=== PATIENT | male | born 1995 | race Caucasian/White ===

== ENCOUNTER 2020-10-09 22:48 | Emergency (ER) | payer SELFPAY ==
--- NOTE | 2020-10-09 22:54 | ED.FALL ---
HPI - Fall General Chief Complaint: Fall Stated Complaint: fell, hard to breath Time Seen by Provider: 10/09/20 22:54 Source: patient Mode of arrival: ambulatory Limitations: no limitations History of Present Illness HPI Narrative: 25-year-old man comes in today complaining of left-sided rib pain, abrasions on left lateral leg, and contusions on his face after falling off a ladder at home 30 minutes before arrival. Patient states that he was 10-15 ft up on a ladder when he lost balance and fell. He denies any head injury but states that struck the side of his face on the ladder. He did not loss consciousness nor has he had any hemoptysis, shortness of breath, vomiting, abdominal pain, or hematuria. Patient states he is only here to appease his significant other; he is not concerned about his injuries. MD complaint: fall Onset (ago): minute(s) (30) Fall from: from height (distance) (10+ ft) Fall witnessed: yes, by family Place fall occurred: home Loss of consciousness: none Prolonged down time: no Symptoms prior to fall: none Location of injury: head and chest Location of injury - extremities: Left: lower leg Severity: moderate Quality: sharp Associated symptoms (after fall): chest pain Review of Systems Review of Systems: All systems reviewed & are unremarkable except as noted in HPI and below Constitutional: Constitutional: Denies chills and Denies fever(s) Eyes: Eyes: Denies change in vision and Denies photophobia ENT: Denies dysphagia, Denies nasal congestion and Denies sore throat Cardiovascular: Cardiovascular: Reports chest pain and Denies radiating jaw, neck or arm pain Respiratory: Respiratory: Denies cough, Denies dyspnea and Denies wheezing Gastrointestinal: Gastrointestinal: Denies abdominal pain, Denies nausea and Denies vomiting Genitourinary: Genitourinary: Denies hematuria Musculoskeletal: Musculoskeletal: Denies back pain, Denies arthralgias and Denies joint swelling Integumentary/Breasts: Skin/Breast: Denies pruritus, Denies erythema and Denies rash Comments: leg abrasions Neurologic: Denies vertigo, Denies dizziness and Denies syncope Hematologic/Lymphatic: Hematologic/Lymphatic: Denies easy bleeding and Denies easy bruising Allergic/Immunologic: Allergic/Immunologic: Denies lip swelling and Denies throat swelling PMFSH Social History Social History Smoking status: Never smoker Alcohol intake: never Substance use: current Substance use type: opiates Other substance usage details: Used fentanyl in the lasr 24 hours Living arrangements: with family Gender identity (if verbalized by the patient): Male Exam Const: General: healthy appearing Orientation/consciousness: patient oriented x3 Limitations: no limitations Other: Mild acute distress. Appears anxious HENMT: Ears: external ears normal, TM's normal bilaterally and EAC's normal General nose exam: Normal nares present Mouth: Yes moist mucous membranes Throat: posterior oropharynx normal Other: Mildly tender parallel linear contusions on the left side of the face from the chin to the samaritan. No bleeding. Eyes: Conjunctivae: conjunctivae normal Pupils: Equal, round and reactive pupils present EOM: EOMs intact bilaterally Neck: Neck: normal visual inspection and no lymphadenopathy Other: Nontender, normal range of motion. Chest: Chest palpation & inspection: tenderness Other: Tenderness to palpation of the left lower anterolateral portion of the chest where there is a linear abrasion. no bruising, swelling, crepitus or palpably abnormal contours. No tenderness to palpation of the sternum or the right chest. Resp: Effort & Inspection: normal respiratory effort and not labored Auscultation: clear to auscultation bilaterally, no rales, no rhonchi and no wheezes Cardio: Rate: regular rate Rhythm: regular rhythm Heart sounds: no murmurs GI: Inspection: non
[2020-10-09 22:56] VITALS: BP 148/90; PULSE 78; RESP 18; TEMP 36.6; O2SAT 98
== END 2020-10-09 23:06 | disposition left against medical advice (07) ==
LOC: CHSED 22:54
PROVIDERS: Emergency Provider Emergency Medicine
DX: S20.219A Contusion of unspecified front wall of thorax, initial encounter (principal); S00.83XA Contusion of other part of head, initial encounter; S80.812A Abrasion, left lower leg, initial encounter; W11.XXXA Fall on and from ladder, initial encounter
CPT/HCPCS: 99282

== ENCOUNTER 2020-10-17 11:58 | Emergency (ER) | payer BC, SELFPAY ==
[2020-10-17 12:23] VITALS: RESP 20; TEMP 36.8; O2SAT 98
--- NOTE | 2020-10-17 12:31 | ED.LOWEXIN ---
HPI - Extremity Injury (Lower) General Chief Complaint: Extremity Injury, Lower Stated Complaint: foot pain Time Seen by Provider: 10/17/20 12:32 Source: patient Mode of arrival: ambulatory Limitations: no limitations History of Present Illness HPI Narrative: Patient states he is homeless and comes in because of increasing pain in right foot over the past few days. Patient states he has had increasing pain in his right foot. Pain has been sharp, moderately severe, and ongoing, worse with walking with his boots on. It appears his boots have been irritating his foot as he walks. He appears to have an ulcer, from where he has a seam in his boot which has been aggravating his foot. Type of Injury: other (ulcer on foot ) Place: street/outdoors Severity: moderate Severity scale (1-10): 8 Relieving factors: nothing Exacerbating factors: nothing Related Data Allergies Allergy/AdvReac Type Severity Reaction Status Date / Time No Known Allergies Allergy Verified 10/17/20 12:55 Review of Systems Constitutional: Constitutional: Reports no additional constitutional complaints Eyes: Eyes: Reports no additional eye complaints ENT: Reports system reviewed and no additional complaints, except as documented Cardiovascular: Cardiovascular: Reports no additional cardiovascular complaints Respiratory: Respiratory: Reports no additional respiratory complaints Gastrointestinal: Gastrointestinal: Reports no additional gastrointestinal complaints Genitourinary: Genitourinary: Reports no additional male genitourinary complaints Musculoskeletal: Musculoskeletal: Reports no additional musculoskeletal complaints Integumentary/Breasts: Skin/Breast: Reports system reviewed and no additional complaints, except as docu Neurologic: Reports system reviewed and no additional complaints, except as documented Psychiatric: Psychiatric: Reports no additional psychiatric complaints Endocrine: Endocrine: Reports no additional endocrine complaints Hematologic/Lymphatic: Hematologic/Lymphatic: Reports no additional hematologic/lymphatic complaints Allergic/Immunologic: Allergic/Immunologic: Reports no additional allergic/immunologic complaints [facility] Past Medical History Medical History (Updated 10/18/20 @ 01:41 by Carlos Alberto Maya MD) Opiate abuse, continuous Surgical History Surgical History (Updated 10/18/20 @ 01:41 by Carlos Alberto Maya MD) No significant past surgical history Family History Family History (Updated 10/18/20 @ 01:41 by Carlos Alberto Maya MD) Mother No significant family history Social History Social History Smoking status: Never smoker Alcohol intake: never Substance use: current Substance use type: opiates Other substance usage details: Used fentanyl in the lasr 24 hours Gender identity (if verbalized by the patient): Male Exam Const: General: no acute distress HENMT: Head: normal to inspection Ears: external ears normal General nose exam: Normal external nose present Mouth: Yes Normal oral and palatal mucosa present Throat: posterior oropharynx normal Eyes: Conjunctivae: conjunctivae normal Neck: Neck: normal visual inspection Chest: Chest palpation & inspection: normal inspection of the chest Resp: Effort & Inspection: normal respiratory effort Auscultation: clear to auscultation bilaterally Cardio: Rate: regular rate Rhythm: regular rhythm GI: GI Palp: Yes Soft to palpation (nontender) Back/Spine/Pelvis: Back: no CVA tenderness Skin: General skin exam: normal color Neuro: General: patient oriented x3 and moves all extremities Extrem: General: normal to inspection Psych: Appearance: grossly normal Mental Status: mental status grossly normal Thought content: Yes Normal thought content present Course Course Emergency Course: He refused admission, and was given keflex 1000mg prior to signing out AMA. He was sent home with a script
[2020-10-17 12:50] VITALS: BP 114/68; PULSE 91; RESP 20; O2SAT 98
[2020-10-17] MEDS: CEPHALEXIN 500 MG CAPSULE 1000 MG PO (12:50)
== END 2020-10-17 13:03 | disposition left against medical advice (07) ==
PROVIDERS: Emergency Provider Emergency Medicine
DX: L03.90 Cellulitis, unspecified (principal)
CPT/HCPCS: 99283; A9270

== ENCOUNTER 2020-10-18 01:35 | Inpatient (IN) | payer BC, SELFPAY ==
[2020-10-18 01:35] VITALS: BP 143/78; PULSE 92; RESP 20; TEMP 36.6; O2SAT 97
[2020-10-18 02:34] LABS: Basophils Absolute Auto 0.05 K/mm3 (0.00-0.10); Basophils Percent Auto 0.5 % (0.0-1.0); Eosinophils Absolute Auto 0.28 K/mm3 (0.02-0.50); Eosinophils Percent Auto 2.9 % (1.0-6.0); Hematocrit 39.3 % (40.0-54.0); Hemoglobin 13.3 g/dL (14.0-18.0); Immature Granulocyte Absolute 0.03 K/mm3 (0.00-0.00); Immature Granulocyte Percent A 0.3 % (0.0-0.0); Lymphocytes Absolute Auto 3.22 K/mm3 (1.10-4.50); Lymphocytes Percent Auto 33.3 % (18.0-42.0); Mean Corpuscular HGB Conc 33.8 g/dL (32.0-36.0); Mean Corpuscular Hemoglobin 29.2 pg (27.0-31.0); Mean Corpuscular Volume 86.4 fL (78.0-102.0); Mean Platelet Volume 9.5 fl (8.7-11.0); Monocytes Absolute Auto 0.92 K/mm3 (0.10-0.90); Monocytes Percent Auto 9.5 % (2.0-11.0); Neutrophils Absolute Auto 5.2 K/mm3 (1.7-7.2); Neutrophils Percent Auto 53.5 % (50.0-70.0); Platelet Count Result 313 K/mm3 (150-420); Red Blood Count 4.55 M/mm3 (4.70-6.10); Red Cell Distribution Width 12.7 % (11.6-14.4); White Blood Count 9.7 K/mm3 (4.8-10.8)
[2020-10-18 02:51] LABS: Alanine Aminotransferase 33 U/L (16-63); Albumin Level 3.9 g/dL (3.4-5.0); Alkaline Phosphatase 103 U/L (46-116); Anion Gap 6 mmol/L (8-16); Aspartate Amino Transferase 29 U/L (15-37); Bilirubin,Total 0.5 mg/dL (0.00-1.00); Blood Urea Nitrogen 23 mg/dL (7-18); Calcium 9.4 mg/dL (8.5-10.1); Carbon Dioxide 31 mmol/L (21-32); Chloride 102 mmol/L (98-108); Estimated Glomerular Filt Rate > 60; Glucose 92 mg/dL (70-99); Osmolality Calculated 291 mOsm/kg (285-295); Sodium 139 mmol/L (136-145); Total Protein 7.4 g/dL (6.4-8.2)
--- NOTE | 2020-10-18 02:53 | ED.LOWEXIN ---
HPI - Extremity Injury (Lower) General Chief Complaint: Extremity Injury, Lower Stated Complaint: FOOT PAIN Time Seen by Provider: 10/18/20 02:40 Source: patient Mode of arrival: ambulatory Limitations: no limitations History of Present Illness HPI Narrative: Patient comes back in to be seen again, complaining of his right foot hurting. Pain has been moderately severe, sharp and ongoing. Pain is less if he stays off his foot. It appears a boot he has been wearing has caused an ulcer on his right foot and precipitated the cellulitis. This apparently has developed over a few days. Place: home Severity: moderate Severity scale (1-10): 5 Relieving factors: rest Related Data Allergies Allergy/AdvReac Type Severity Reaction Status Date / Time No Known Allergies Allergy Verified 10/17/20 12:55 Review of Systems Constitutional: Constitutional: Reports no additional constitutional complaints Eyes: Eyes: Reports no additional eye complaints ENT: Reports system reviewed and no additional complaints, except as documented Cardiovascular: Cardiovascular: Reports no additional cardiovascular complaints Respiratory: Respiratory: Reports no additional respiratory complaints Gastrointestinal: Gastrointestinal: Reports no additional gastrointestinal complaints Genitourinary: Genitourinary: Reports no additional male genitourinary complaints Musculoskeletal: Musculoskeletal: Reports no additional musculoskeletal complaints Integumentary/Breasts: Skin/Breast: Reports system reviewed and no additional complaints, except as docu Neurologic: Reports system reviewed and no additional complaints, except as documented Psychiatric: Psychiatric: Reports no additional psychiatric complaints Endocrine: Endocrine: Reports no additional endocrine complaints Hematologic/Lymphatic: Hematologic/Lymphatic: Reports no additional hematologic/lymphatic complaints Allergic/Immunologic: Allergic/Immunologic: Reports no additional allergic/immunologic complaints [facility] Past Medical History Medical History (Updated 10/18/20 @ 02:56 by Carlos Alberto Maya MD) Opiate abuse, continuous Surgical History Surgical History (Updated 10/18/20 @ 01:41 by Carlos Alberto Maya MD) No significant past surgical history Family History Family History (Updated 10/18/20 @ 01:41 by Carlos Alberto Maya MD) Mother No significant family history Social History Social History Smoking status: Never smoker Alcohol intake: never Substance use: current Substance use type: opiates Other substance usage details: Used fentanyl in the lasr 24 hours Gender identity (if verbalized by the patient): Male Exam Const: General: healthy appearing and no acute distress Orientation/consciousness: patient oriented x3 HENMT: Head: normal to inspection Face and sinus: normal facial exam Eyes: Conjunctivae: conjunctivae normal Neck: Neck: normal visual inspection Chest: Chest palpation & inspection: normal inspection of the chest Resp: Effort & Inspection: normal respiratory effort Auscultation: clear to auscultation bilaterally Cardio: Rate: regular rate Rhythm: regular rhythm GI: GI Palp: Yes Soft to palpation (nontender) Skin: General skin exam: normal color Neuro: General: patient oriented x3 and moves all extremities Extrem: Other: cellulitis to right foot, and ulcer on proximal foot Psych: Appearance: grossly normal Mental Status: mental status grossly normal Thought content: Yes Normal thought content present Course Course Emergency Course: labs were done, antibiotics were started for cellulitis in right foot MDM - Extremity Injury (Lower) Differential Diagnosis Differential diagnosis: Likely other (cellulitis right foot) Lab Data Result diagrams: 10/18/20 02:20 10/18/20 02:20 Labs: Lab Results 10/18/20 10/18/20 Range/Units 02:20 02:20 WBC 9.7 (4.8-
[2020-10-18 03:14] LABS: Amphetamine Screen Urine Positive (Negative); Barbiturate Screen Urine Negative (Negative); Benzodiazepines Screen Urine Negative (Negative); Cannabinoid Screen Urine Negative (Negative); Cocaine Screen Urine Negative (Negative); Methadone Screen Urine Negative (Negative); Opiate Screen Urine Positive (Negative); Phencyclidine Screen Urine Negative (Negative)
--- NOTE | 2020-10-18 03:18 | PC.NURSE ---
0230 pt showered with hibicleanse soap. clean gown and socks applied.
[2020-10-18 03:26] VITALS: BP 147/84; PULSE 94; RESP 20; TEMP 36.5; O2SAT 97
--- NOTE | 2020-10-18 04:00 | PC.NURSE ---
per dr day, allow floor staff to apply dressing to feet as ordered.
--- NOTE | 2020-10-18 04:02 | PC.NURSE ---
0400 pt to floor per wheelchair with personal belongings with JENNIFER Dubon.
[2020-10-18 04:13] VITALS: BMI 22.3
--- NOTE | 2020-10-18 04:19 | PC.NURSE ---
Patient admitted to floor from ER at 0400. Patient is A/O x4. Wounds present to right and left feet. Wounds were dressing after assessment. Able to ambulate, unsteady gait at times d/t wounds to feet. IV present to left wrist. Patient ate sandwich and drank soda. Monitoring.
[2020-10-18] MEDS: NICOTINE (*PBKC) 21 MG PATCH 1 PATCH TRANSDERM (04:28)
[2020-10-18] MEDS: MUPIROCIN 2% OINT 22 GM TUBE 1 APPLIC TOPICAL (04:28)
[2020-10-18 05:07] VITALS: BP 106/57; PULSE 86; RESP 18; TEMP 36.4; O2SAT 99
--- NOTE | 2020-10-18 05:08 | PC.NURSE ---
Patient admitted with iphone and personal forest law and policy professor, edward. Clothes and boots.
[2020-10-18 08:00] VITALS: BP 111/56; PULSE 80; RESP 18; TEMP 36.4; O2SAT 99
--- NOTE | 2020-10-18 08:40 | PC.NURSE ---
Patient called to nurses station stating that he is going to leave. V Block Saw Operator reported to MONA Urena. Romel spoke with patient. Patient signed AMA paper. Left wrist IV removed, catheter intact.
--- NOTE | 2020-10-18 08:51 | PC.NURSE ---
Line Leader went to check on patient. Patient and all belongings gone. MONA Urena, charge nurse notified
--- NOTE | 2020-10-18 08:55 | PC.NURSE ---
Patient signed out AMA. Left floor around 0845. Ambulated off of floor without notifying anyone.
--- NOTE | 2020-10-18 08:57 | PM.SD2 ---
Same Day Admit/Disch: HPI History of Present Illness Chief complaint: FOOT PAIN <DAVID James - Last Filed: 10/18/20 09:07> Narrative: Fer Culver is a 25 year old male who came to the hospital yesterday 2 times. Both times were for lower extremity issues. He refused to be admitted the first time but was agreeable the second time he come to the ER. I was informed by Nurse Bolaños that the Pt informed her that he was leaving. She stated he was going to leave AMA. Pt would not allow me to perform a physical exam, obtain HPI (above is from ER notes), or any other assessment for his hospitalization. <DAVID James - Last Filed: 10/18/20 09:07> [facility] Past Medical History Medical History: Medical History (Updated 10/18/20 @ 02:56 by Carlos Alberto Maya MD) Opiate abuse, continuous <DAVID James - Last Filed: 10/18/20 09:07> Surgical History Surgical History: Surgical History (Updated 10/18/20 @ 01:41 by Carlos Alberto Maya MD) No significant past surgical history <DAVID James - Last Filed: 10/18/20 09:07> Family History Family History: Family History (Updated 10/18/20 @ 01:41 by Carlos Alberto Maya MD) Mother No significant family history <DAVID James - Last Filed: 10/18/20 09:07> Social History Social History: Social History Smoking packs per day: 1 Smoking cigarettes per day: 20.0 Years smoked: 10 Smoking pack-years: 10.00 Smoking status: Current every day smoker Tobacco type: cigarettes Smokeless tobacco user: chewing tobacco Second hand tobacco smoke exposure: Yes Alcohol intake: never Substance use: current Substance use type: other Other substance usage details: fentanyl Gender identity (if verbalized by the patient): Male Spiritual care concerns: No <DAVID James - Last Filed: 10/18/20 09:07> Same Day Admit/Disch: Med Pre-admit Medications Home Medications: Home Medications Medication Instructions Recorded Confirmed Type cephalexin 500 mg PO Q6H 7 Days #40 cap 10/17/20 10/18/20 Rx <DAVID James - Last Filed: 10/18/20 09:07> Exam Narrative: Exam Narrative: Pt did not allow a Physical Examination <DAVID James - Last Filed: 10/18/20 09:07> DS: Data Data Completed and Pending Labs on day of discharge: Labs from last 24 hours 10/18/20 10/18/20 10/18/20 02:20 02:20 02:01 WBC 9.7 RBC 4.55 L Hgb 13.3 L Hct 39.3 L MCV 86.4 MCH 29.2 MCHC 33.8 RDW 12.7 Plt Count 313 MPV 9.5 Immature Gran % (Auto) 0.3 H Neut % (Auto) 53.5 Lymph % (Auto) 33.3 [place] % (Auto) 9.5 Eos % (Auto) 2.9 Baso % (Auto) 0.5 Lymph # (Auto) 3.22 [place] # (Auto) 0.92 H Eos # (Auto) 0.28 Baso # (Auto) 0.05 Abs Immat Gran (auto) 0.03 H Absolute Neuts (auto) 5.2 Absolute Nucleated RBC 0.00 Nucleated RBC % 0.0 Sodium 139 Potassium 4.0 Chloride 102 Carbon Dioxide 31 Anion Gap 6 L BUN 23 H Creatinine 0.98 Estim Creat Clear Calc Not Reportable Estimated GFR > 60 Glucose 92 Calculated Osmolality 291 Calcium 9.4 Total Bilirubin 0.5 AST 29 ALT 33 Alkaline Phosphatase 103 Total Protein 7.4 Albumin 3.9 Urine Opiates Screen Positive A Urine Methadone Screen Negative Ur Barbiturates Screen Negative Ur Phencyclidine Scrn Negative Ur Amphetamine Screen Positive A U Benzodiazepines Scrn Negative Urine Cocaine Screen Negative U Cannabinoids Screen Negative <DAVID James - Last Filed: 10/18/20 09:07> DS: Summary Time Spent with Patient Time attestation: Total time spent providing and/or coordinating discharge services: <DAVID James - Last Filed: 10/18/20 09:07> DS: Admitting Diagnosis Admitting Diagnosis Admitting Diagnosis: Cellulitis <Lamont Prater
--- NOTE | 2020-10-26 13:21 | PC.NURSE ---
Unable to contact for discharge call back.
== END 2020-10-18 08:45 | disposition left against medical advice (07) | DRG 383 ==
LOC: CHSED 02:56 → CHS2ND 03:46
PROVIDERS: Admitting Provider Emergency Medicine; Emergency Provider Emergency Medicine; Visit Provider Emergency Medicine
DX: L03.115 Cellulitis of right lower limb (principal); L89.899 Pressure ulcer of other site, unspecified stage; F11.10 Opioid abuse, uncomplicated; L03.818 Cellulitis of other sites; F17.210 Nicotine dependence, cigarettes, uncomplicated; Z53.29 Procedure and treatment not carried out because of patient's decision for other reasons
CPT/HCPCS: 36415; 80053; 80307; 85025; 87040; 96365; 99285; A9270; J0690; J3370